=== PATIENT | female | born 1970 | race African-American/Black ===

== ENCOUNTER 2016-03-02 09:59 | Emergency (ER) | payer MEDICAID ==
[2016-03-02] MEDS ORDERED: DEXAMETHASONE 4 MG/ML VIAL ONE (10:49)
== END 2016-03-02 11:15 | disposition home or self-care (01) ==
LOC: FASTR 10:22
DX: M54.32 Sciatica, left side (principal); R20.8 Other disturbances of skin sensation; G40.909 Epilepsy, unspecified, not intractable, without status epilepticus; M79.7 Fibromyalgia
CPT/HCPCS: 96372